=== PATIENT | female | born 1930 | race Caucasian/White ===

== ENCOUNTER → 2016-02-28 | Outpatient (CLI) | payer MEDICARE, BC ==
[~2016-02-28] MED LIST: /ONDA4TA; ACET65TA; ATEN25TA; CIPR500T4; COLA100C2; DIABETA; DYAZ37.5; FLAG500T; GLYBPOW; ISOVUE-370 76% 100ML VIAL (Q9967) As Ordered ONE; JANUVIA; NYSTATIN ORAL; PLAV75TA2; VICO5TAB
--- NOTE | 2016-02-28 22:05 | REP ---
CT abdomen pelvis performed as hematuria protocol, without contrast, following IV contrast injection with imaging in the portal venous phase, and 7 minute delayed imaging. Comparison: CT abdomen pelvis 08/12/2009 Technique: Initially unenhanced CT of the abdomen and pelvis was performed. Following IV contrast injection of 100 ml Isovue 370 mg/ml, 3 mm spiral axial sections were performed through the abdomen and pelvis. 7-minute delayed images were subsequently performed through the abdomen and pelvis Findings: Minimal dependent atelectasis/scarring present in lung bases bilaterally. There is mild diffuse fatty infiltration of liver. The spleen, pancreas, are normal. Gallbladder is contracted with moderately thickened wall. There are no visualized gallstones and no significant biliary dilatation. The adrenal glands are normal. Kidneys are without hydronephrosis or obstructing ureteral calculi bilaterally. Bilateral symmetric nephrograms. There are small bilateral extrarenal pelves. Tiny hypodense focus of 2.5 mm in the upper pole right kidney is most compatible with tiny cyst yet too small to accurately characterize. The ureters are of normal course and caliber. There is mild fractional visualization of the pelvic portion of the left ureter. Moderate atherosclerotic changes are noted in the aorta, without aneurysm. There are no pathologically enlarged retroperitoneal nodes. There is a small hiatal hernia of 2.3 cm with mild circumferential mural thickening which should be correlated clinically. The small bowel is without obstruction. There has been previous right hemicolectomy and there is a patent right ileal colic anastomosis. The bladder is moderately distended with urine. The uterus is absent. There are no adnexal masses. There is moderate diffuse retained colonic stool. There is no free air or ascites. Impression: 2 mm hypodensity in the upper pole right kidney, too small to accurately characterize, yet likely a tiny cyst. No hydronephrosis bilaterally or obstructing ureteral calculi. Unremarkable bladder. Prior right hemicolectomy with an ileocolic anastomosis. Contracted gallbladder with moderate circumferential mural thickening. Small hiatal hernia of 2.3 cm with mild circumferential mural thickening which should be correlated clinically. Signed by Johanna Diggs MD 02/28/2016 09:56 P
== END ==
LOC: M RAD 14:08
PROVIDERS: ATTEND Urology
DX: R31.9 Hematuria, unspecified (principal); K44.9 Diaphragmatic hernia without obstruction or gangrene; Z98.0 Intestinal bypass and anastomosis status
CPT/HCPCS: 74178; Q9967

== ENCOUNTER → 2016-08-01 | Outpatient (REF) | payer MEDICARE, BC ==
[~2016-08-01] MED LIST changes: -ISOVUE-370 76% 100ML VIAL (Q9967) As Ordered ONE
== END ==
LOC: M WUC 16:38
PROVIDERS: ATTEND Physician Assistant
DX: R30.0 Dysuria (principal)

== ENCOUNTER 2017-02-24 00:35 | Emergency (ER) | payer MEDICARE, BC | END 2017-02-24 06:38 | disposition home or self-care (01) | LOC: M ED 00:35 | DX: K64.4 Residual hemorrhoidal skin tags (principal); I25.10 Atherosclerotic heart disease of native coronary artery without angina pectoris; E11.9 Type 2 diabetes mellitus without complications; I10 Essential (primary) hypertension; E78.70 Disorder of bile acid and cholesterol metabolism, unspecified; Z79.82 Long term (current) use of aspirin; Z88.8 Allergy status to other drugs, medicaments and biological substances; Z88.1 Allergy status to other antibiotic agents; Z88.0 Allergy status to penicillin; Z88.2 Allergy status to sulfonamides; Z79.899 Other long term (current) drug therapy; Z95.5 Presence of coronary angioplasty implant and graft; Z85.038 Personal history of other malignant neoplasm of large intestine; Z98.890 Other specified postprocedural states | CPT/HCPCS: 99284 ==

== ENCOUNTER → 2017-07-14 | Outpatient (CLI) | payer MEDICARE, BC ==
[2017-07-14 12:46] LABS: INR 0.95; PROTHROMBIN TIME 12.8 SECONDS (12.4-14.5)
[2017-07-14 12:47] LABS: PARTIAL THROMBOPLASTIN TIME 50.4 SECONDS (26.8-37.9)
[2017-07-14 12:52] LABS: HEMATOCRIT 40.1 % (36.0-47.0); HEMOGLOBIN 13.7 g/dl (12.0-15.5); MEAN CORPUSCULAR HEMOGLOBIN 31.1 pg (27.0-33.0); MEAN CORPUSCULAR HGB CONC 34.2 g/dl (32.0-36.5); MEAN CORPUSCULAR VOLUME 90.9 fl (80.0-96.0); PLATELET COUNT, AUTOMATED 234 10^3/uL (150-450); RED BLOOD COUNT 4.41 10^6/uL (4.00-5.40); RED CELL DISTRIBUTION WIDTH 13.2 % (11.5-14.5); WHITE BLOOD COUNT 7.6 10^3/uL (4.0-10.0)
[2017-07-14 13:18] LABS: ANION GAP 8 MEQ/L (8-16); BLOOD UREA NITROGEN 24 MG/DL (7-18); CALCIUM LEVEL 8.8 MG/DL (8.8-10.2); CARBON DIOXIDE LEVEL 27 MEQ/L (21-32); CHLORIDE LEVEL 106 MEQ/L (98-107); CREATININE FOR GFR 0.96 MG/DL (0.55-1.30); GLOMERULAR FILTRATION RATE 58.3 (>32); GLUCOSE, FASTING 196 MG/DL (70-100); POTASSIUM SERUM 4.4 MEQ/L (3.5-5.1); SODIUM LEVEL 141 MEQ/L (136-145)
== END ==
LOC: M LAB 11:26
DX: Z01.812 Encounter for preprocedural laboratory examination (principal); I70.411 Atherosclerosis of autologous vein bypass graft(s) of the extremities with intermittent claudication, right leg
CPT/HCPCS: 80048